=== PATIENT | male | born 1965 | race African-American/Black ===

== ENCOUNTER 2019-11-25 10:08 | Emergency (ER) | payer MEDICAID ==
[~2019-11-25] VITALS: Ht 182.9 cm; Wt 118.2 kg
[~2019-11-25 10:08] MED LIST: GABA-529 PO; HYDR-3965 PO
[2019-11-25] MEDS ORDERED: ATOR20TA65 PO (10:20)
[2019-11-25] MEDS ORDERED: METF-446 PO (10:20)
[2019-11-25] MEDS ORDERED: TAMS-13 PO (10:20)
[2019-11-25] MEDS ORDERED: AMLO10TA55 PO (10:20)
[2019-11-25] MEDS ORDERED: INSLAN SQ (10:20)
[2019-11-25] MEDS ORDERED: ASPI-1111 PO (10:20)
[2019-11-25] MEDS ORDERED: HYDR25TA PO (10:20)
[2019-11-25] MEDS ORDERED: INSU100V36 SQ (10:20)
[2019-11-25] MEDS ORDERED: LISI-618 PO (10:20)
[2019-11-25 11:41] VITALS: BP 151/99
[2019-11-25 11:46] LABS: GLUCOSE,POINT OF CARE 244 MG/DL (70-110)
[2019-11-25 12:40] LABS: GLUCOSE,POINT OF CARE 150 MG/DL (70-110)
== END 2019-11-25 13:01 | disposition home or self-care (01) ==
LOC: EMS 10:10
DX: T38.3X1A Poisoning by insulin and oral hypoglycemic [antidiabetic] drugs, accidental (unintentional), initial encounter (principal); I10 Essential (primary) hypertension; E11.9 Type 2 diabetes mellitus without complications; Z79.4 Long term (current) use of insulin; Z79.899 Other long term (current) drug therapy; Y92.89 Other specified places as the place of occurrence of the external cause
CPT/HCPCS: 82948